=== PATIENT | male | born 1935 | race Caucasian/White ===

== ENCOUNTER 2020-12-20 15:17 | Outpatient (CLI) | payer MEDICARE, BC ==
[2020-12-21 05:51] LABS: SARS-CoV-2 PCR by NAA Not Detected (NotDetected)
== END 2020-12-20 15:18 | disposition home or self-care (01) ==
LOC: CSHLAB 15:17
PROVIDERS: ATTEND Internal Medicine Gastroenterology
DX: Z20.822 Contact with and (suspected) exposure to COVID-19 (principal); R13.10 Dysphagia, unspecified; K63.5 Polyp of colon
CPT/HCPCS: 87635; U0003; U0005

== ENCOUNTER 2021-01-03 14:11 | Outpatient (CLI) | payer MEDICARE, BC ==
[2021-01-04 02:23] LABS: SARS-CoV-2 PCR by NAA Not Detected (NotDetected)
== END 2021-01-03 14:12 | disposition home or self-care (01) ==
LOC: CSHLAB 14:11
PROVIDERS: ATTEND Internal Medicine Gastroenterology
DX: Z20.822 Contact with and (suspected) exposure to COVID-19 (principal); R13.10 Dysphagia, unspecified; K63.5 Polyp of colon
CPT/HCPCS: 87635; U0003; U0005

== ENCOUNTER 2021-01-08 08:26 | Day surgery (SDC) | payer MEDICARE, BC ==
[2020-12-22 09:21] VITALS: BMI 26.4
[2021-01-08] MEDS ORDERED: Lidocaine 1% MPF 2 ML VIAL ONE (08:41)
[2021-01-08] MEDS ORDERED: PROPOFOL 20 ML ONE ×2 (09:56→10:22)
[2021-01-08] MEDS ORDERED: PHENYLEPHRINE-NS 100 MCG/ML 10 ML SYRINGE ONE (10:39)
== END 2021-01-08 15:00 | disposition home or self-care (01) ==
LOC: CSHSDC 08:26 → UNDOADMIN 09:04 → CSHTELE 09:04 → CSHSDC 15:00
PROVIDERS: ATTEND Internal Medicine Gastroenterology
PROC: 0D758ZZ Dilation of Esophagus, Via Natural or Artificial Opening Endoscopic (ICD-10-PCS; principal; 2021-01-08)
PROC: 0DBN8ZZ Excision of Sigmoid Colon, Via Natural or Artificial Opening Endoscopic (ICD-10-PCS; 2021-01-08)
DX: Z12.11 Encounter for screening for malignant neoplasm of colon (principal); R13.10 Dysphagia, unspecified; K21.00 Gastro-esophageal reflux disease with esophagitis, without bleeding; D12.0 Benign neoplasm of cecum; D12.5 Benign neoplasm of sigmoid colon; K22.2 Esophageal obstruction; K44.9 Diaphragmatic hernia without obstruction or gangrene; K31.7 Polyp of stomach and duodenum; K26.9 Duodenal ulcer, unspecified as acute or chronic, without hemorrhage or perforation; K25.9 Gastric ulcer, unspecified as acute or chronic, without hemorrhage or perforation
CPT/HCPCS: 88305; J2704

== ENCOUNTER 2022-09-20 16:25 | Emergency (ER) | payer OTHER, MEDICARE, BC ==
[2022-09-20] MEDS ORDERED: Boostrix 0.5 ML (Tdap) VIAL (>/=7 yrs of age) ONE (17:01)
[2022-09-20] MEDS ORDERED: Lidocaine/Transparent Dressing 1 EACH KIT ONE (17:23)
== END 2022-09-20 18:05 | disposition home or self-care (01) ==
LOC: CSHERS 16:25
DX: S09.90XA Unspecified injury of head, initial encounter (principal); S20.229A Contusion of unspecified back wall of thorax, initial encounter; K21.9 Gastro-esophageal reflux disease without esophagitis; I10 Essential (primary) hypertension; W01.0XXA Fall on same level from slipping, tripping and stumbling without subsequent striking against object, initial encounter; Z23 Encounter for immunization
CPT/HCPCS: 12001; 70450; 72128; 90471; 90715

== ENCOUNTER 2023-07-24 08:38 | Day surgery (SDC) | payer MEDICARE, BC ==
[2023-07-23 09:35] VITALS: BMI 29.5
[2023-07-24] MEDS ORDERED: PROPOFOL 20 ML ONE (10:23)
[2023-07-24] MEDS ORDERED: fentaNYL 50 mcg/mL 1 mL Vial ONE (10:23)
== END 2023-07-24 11:30 | disposition home or self-care (01) ==
LOC: CSHSDC 08:38
PROVIDERS: ATTEND Internal Medicine Gastroenterology
PROC: 0DB68ZX Excision of Stomach, Via Natural or Artificial Opening Endoscopic, Diagnostic (ICD-10-PCS; principal; 2023-07-24)
DX: K31.7 Polyp of stomach and duodenum (principal); R93.5 Abnormal findings on diagnostic imaging of other abdominal regions, including retroperitoneum; K21.9 Gastro-esophageal reflux disease without esophagitis; I10 Essential (primary) hypertension; K44.9 Diaphragmatic hernia without obstruction or gangrene; M25.562 Pain in left knee; M25.561 Pain in right knee; D64.9 Anemia, unspecified; R60.1 Generalized edema; R93.3 Abnormal findings on diagnostic imaging of other parts of digestive tract; L98.9 Disorder of the skin and subcutaneous tissue, unspecified; Z86.010 Personal history of colon polyps; Z79.899 Other long term (current) drug therapy; Z79.82 Long term (current) use of aspirin; Z91.018 Allergy to other foods; Z88.1 Allergy status to other antibiotic agents; Z90.49 Acquired absence of other specified parts of digestive tract
CPT/HCPCS: 43239; J3010; 88305; J2704